=== PATIENT | female | born 2005 | race Caucasian/White ===

== ENCOUNTER 2024-06-07 23:32 | Emergency (ER) | payer BC, SELFPAY ==
--- NOTE | ~2024-06-07 | CT_ITS ---
EXAMINATION: CT abdomen pelvis w con DATE: 06/08/2024 02:08 INDICATION: Abdominal pain. Gastrointestinal bleed. TECHNIQUE: Computed tomography (CT) of the abdomen and pelvis was performed with 100 mL Omnipaque-350 intravenous contrast. Automated exposure control and iterative reconstruction technique were employe d. The dose-length product was 331.76 mGy-cm. COMPARISON: None FINDINGS: Lung bases are clear. Heart size normal. No pericardial or pleural effusion. Liver, gallbladder, sple en, pancreas, bilateral adrenal glands and kidneys are normal. Likely prior appendectomy with suture line at the DIP the cecum. No bowel obstruction. T-shaped IUD in expected position within the retrove rted uterus. 2 cm right ovarian follicle. No free intraperitoneal gas or fluid. No pathologically enl arged abdominal or pelvic lymphadenopathy. Bones are unremarkable. IMPRESSION: 1. No acute intra-abdominal/pelvic process. Reviewed, dictated and finalized at location A.
[2024-06-07 23:49] VITALS: BP 114/77; PULSE 84; RESP 15; TEMP 36.3; O2SAT 100
[2024-06-08] MEDS: ONDANSETRON INJ 4 MG/2 ML VIAL IV PUSH (00:07)
[2024-06-08 00:13] LABS: Basophils Absolute Auto 0.1 K/mm3 (0.0-0.1); Basophils Percent Auto 0.6 % (0.2-1.2); Eosinophils Absolute Auto 0.2 K/mm3 (0-0.3); Eosinophils Percent Auto 1.8 % (0-4.4); Hematocrit 39.1 % (37.0-47.0); Hemoglobin 13.6 g/dL (12.0-15.0); Immature Granulocyte Absolute 0.01 K/mm3 (0.00-0.031); Immature Granulocyte Percent A 0.1 % (0-0.5); Lymphocytes Absolute Auto 2.68 K/mm3 (0.9-3.2); Lymphocytes Percent Auto 31.5 % (18.3-44.2); Mean Corpuscular HGB Conc 34.8 g/dl (32-36); Mean Corpuscular Hemoglobin 29.8 pg (26-34); Mean Corpuscular Volume 85.6 fl (80-100); Mean Platelet Volume 10.4 fl (7.4-10.4); Monocytes Absolute Auto 0.7 K/mm3 (0.1-0.6); Monocytes Percent Auto 7.6 % (2.6-8.5); Neutrophils Percent Auto 58.4 % (45.5-73.1); Platelet Count Result 310 k/mm3 (150-375); Red Blood Count 4.57 M/mm3 (4.2-5.4); Red Cell Distribution Width 11.9 % (11.5-14.5); White Blood Count 8.5 K/mm3 (4.5-10.0)
[2024-06-08 00:24] LABS: Alanine Aminotransferase 14 U/L (6-35); Albumin Level 4.7 g/dL (3.5-5.1); Alkaline Phosphatase 53 U/L (38-126); Anion Gap 12 mmol/L (4-12); Aspartate Amino Transferase 27 U/L (14-36); Bilirubin,Total 0.3 mg/dL (0.2-1.3); Blood Urea Nitrogen 25 mg/dL (7-17); Calcium 9.4 mg/dL (8.4-10.2); Carbon Dioxide 26 mmol/L (22-30); Chloride 100 mmol/L (98-107); Estimated CRCL calculation 60 ml/min; Estimated Glomerular Filt Rate > 60; Glucose 126 mg/dL (65-110); Potassium 3.4 mmol/L (3.4-5.0); Sodium 138 mmol/L (137-145)
[2024-06-08] MEDS: KETOROLAC 30 MG/ML VIAL (*BKC) IV PUSH (01:29)
[2024-06-08] MEDS: PANTOPRAZOLE SODIUM IV 40 MG VIAL IV PUSH (01:29)
[2024-06-08] MEDS: FAMOTIDINE 20 MG/2 ML VIAL IV PUSH (01:30)
[2024-06-08] MEDS: SODIUM CHLORIDE 0.9% IV 1,000 ML 999 ML IV CONT (01:30)
[2024-06-08 01:41] LABS: Lipase 138 U/L (23-300)
--- NOTE | 2024-06-08 01:42 | ED.GIBLEED ---
HPI - GI Bleed General Chief complaint: GI Bleed Stated complaint: I went to the bathroom, bleeding, lightheaded, silvestre Time Seen by Provider: 06/07/24 23:44 Source: patient Mode of arrival: ambulatory Limitations: no limitations History of Present Illness HPI Narrative: Patient is 19-year-old female who presents the ER with rectal bleeding. She reports that she some cramping in her stomach earlier today, then sat on the toilet and had a bowel movement. Patient reports a large amount of blood came out in the toilet. She reports she has no GI history and has never experienced rectal bleeding in the past. Patient has no notable medical history relevant to this ER visit. She denies any nausea, vomiting, hematemesis, chest pain, or shortness or breath. Pt reports she does have a sensitive stomach when she eats cheese or bread. Prior to the bowel movement this evening, she reports she hasn't had a bowel movement in 2-3 days. MD complaint: blood on toilet paper and blood streaked stool Onset (ago): hour(s) Pain Consistency: intermittent Severity: mild Exacerbating factors: bowel movement Associated symptoms: abdominal pain Related Data Allergies Allergy/AdvReac Type Severity Reaction Status Date / Time No Known Allergies Allergy Verified 06/07/24 23:52 Review of Systems Review of Systems: All systems reviewed & are unremarkable except as noted in HPI and below Exam Narrative: GENERAL: Well appearing, well-nourished, non-toxic, in no acute distress. RESPIRATORY: Airway patent, respirations nonlabored. Clear to auscultation bilaterally, no rales, rhonchi, wheezing. CARDIOVASCULAR: Regular rate and rhythm without murmurs, rubs, or gallops. Peripheral pulses 2+ and equal bilaterally. ABDOMINAL: Soft, mildly tender in L upper and lower quadrants, nondistended, no hepatosplenomegaly. Normoactive BS. MUSCULOSKELETAL: Moves all extremities. Strength/ROM intact without gross deformities. SKIN: Warm, dry, normal color. No rashes. NEURO: A&O X3. Speech clear. Cranial nerves II-XII grossly intact. Steady gait. No ataxic movements. PSYCHIATRIC: Appropriate mood and affect. Normal interaction. Course Vital Signs Vital signs: Vital Signs Temperature 36.3 C L 06/07/24 23:49 Pulse Rate 84 06/07/24 23:49 Respiratory Rate 15 06/07/24 23:49 Blood Pressure 114/77 06/07/24 23:49 Pulse Oximetry 100 06/07/24 23:49 Oxygen Delivery Room Air 06/07/24 23:49 Temperature 36.3 C L 06/07/24 23:49 Pulse Rate 84 06/07/24 23:49 Respiratory Rate 15 06/07/24 23:49 Blood Pressure 114/77 06/07/24 23:49 Pulse Oximetry 100 06/07/24 23:49 Oxygen Delivery Room Air 06/07/24 23:49 MDM - GI Bleed MDM Narrative Medical decision making narrative: Patient is 19-year-old female who presents the ER with rectal bleeding. She reports that she some cramping in her stomach earlier today, then sat on the toilet and had a bowel movement. Patient reports a large amount of blood came out in the toilet. She reports she has no GI history and has never experienced rectal bleeding in the past. Patient has no notable medical history relevant to this ER visit. She denies any nausea, vomiting, hematemesis, chest pain, or shortness or breath. Pt reports she does have a sensitive stomach when she eats cheese or bread. Prior to the bowel movement this evening, she reports she hasn't had a bowel movement in 2-3 days. Pt's exam was unremarkable, along with her blood work. Her rectal exam shows one hemorrhoid with no indication of rectal bleeding, even with pt bearing down. Pt reports the Prilosec and Pepcid helped relieve her abdominal pain. She verbalizes understanding of negative abdominal CT exam. Pt reports she is in agreement with being discharged home and understands the need to follow up with her PCP. Differential Diagnosis Differential diagnosis: Likely hemorrhoids, Lower gastrointestinal hemorrhage, hematochezia, anal fissure
[2024-06-08 01:55] LABS: BEDSIDEPREGUCG Negative (Negative)
[2024-06-08 03:00] VITALS: BP 104/66; PULSE 73; RESP 15; O2SAT 100
== END 2024-06-08 04:09 | disposition home or self-care (01) ==
PROVIDERS: Emergency Medicine; Emergency Provider Registered Nurse
DX: K64.9 Unspecified hemorrhoids (principal); K21.9 Gastro-esophageal reflux disease without esophagitis; Z97.5 Presence of (intrauterine) contraceptive device
CPT/HCPCS: 36415; 74177; 80053; 81025; 83690; 85025; 86850; 86900; 86901; 96361; 96374; 96375; 99284; J1885; J2405; J2470; J7030; Q9967